=== PATIENT | male | born 1965 | race Caucasian/White ===

== ENCOUNTER 2020-07-16 16:18 | Emergency (ER) | payer OTHER, SELFPAY ==
--- NOTE | ~2020-07-16 | XR_ITS ---
EXAMINATION: XR hip RT min 2V DATE: 07/16/2020 17:08 INDICATION: Right hip pain. Injury. TECHNIQUE: 3 views of right hip were obtained. COMPARISON: None. FINDINGS: Right hip bone alignment is normal. No fracture. There is mild right hip osteoarthritis. Th ere is moderate lumbar spondylosis. There is heterotopic ossification near right ischial tuberosity. IMPRESSION: 1. Mild right hip osteoarthritis. Reviewed, dictated and finalized at location A. [employer]
[2020-07-16 16:31] VITALS: BP 165/79; PULSE 93; RESP 12; TEMP 37.6; O2SAT 100
--- NOTE | 2020-07-16 16:37 | ED.WOUNDLAC ---
HPI - Wound/Laceration General Chief Complaint: Wound/Laceration Stated Complaint: puncture wound Time Seen by Provider: 07/16/20 16:42 Source: patient and RN notes reviewed Mode of arrival: ambulatory Limitations: no limitations History of Present Illness HPI narrative: Patient presents today complaining of an injury to his right low back/buttock. He tripped and fell at work 4 days ago while putting a chair on a chair rack. Patient works for the [employer]. He has not been able to work since then and was told to come in for evaluation. Denies radiation of the pain. Denies numbness or tingling in the extremities or genitalia. Denies any loss of bowel or bladder control. Pain increases with bending at the waist or movement of the right hip. Currently rates his pain 3/10 and has been taking aspirin with relief. Patient drinks 10 alcoholic beverages per night after work. Up-to-date on tetanus vaccine. Related Data Home Medications Medication Instructions Recorded Confirmed No Home Medications 07/16/20 07/16/20 Allergies Allergy/AdvReac Type Severity Reaction Status Date / Time No Known Allergies Allergy Unverified 10/30/16 18:16 Review of Systems Review of Systems: Narrative: CONSTITUTIONAL: Denies body aches, fever, chills, or sweats. EYES: Denies visual changes, redness, or discharge. ENT: Denies rhinorrhea, congestion, sore throat, or otalgia. CARDIOVASCULAR: Denies chest pain, palpitations, or edema. RESPIRATORY: Denies cough or dyspnea. GASTROINTESTINAL: Denies abdominal pain, nausea, vomiting, or diarrhea. GENITOURINARY: Denies dysuria or hematuria. SKIN: Denies rash, itching, or wounds. MUSCULOSKELETAL: Right low back and hip pain and bruising NEUROLOGIC: Denies headache, numbness, tingling, or weakness. PSYCH: Denies depression or anxiety. [facility] Past Medical History Medical History (Updated 07/16/20 @ 17:17 by Noemi Payton, [employer], ) Anxiety Chronic maxillary sinusitis Congenital deformity of knee Essential hypertension History of alcohol abuse History of carpal tunnel syndrome Major depressive disorder Malignant neoplasm of eyelid Family History Family History (Updated 12/21/15 @ 23:19 by DOCTOR UNKNOWN) Mother Family history of diabetes mellitus in first degree relative Family history of coronary artery disease Sibling Family history of diabetes mellitus in first degree relative Social History Social History (Updated 07/16/20 @ 16:55 by Noemi Payton, [facility], ) Smoking status: Never smoker Alcohol intake: current Drinks per week: 70 Comments At time of signature, I have reviewed and agree with nursing past medical, surgical, social and family history unless otherwise noted. Please see nursing chart for further information. There is no relevant family history pertinent to the presenting complaint Exam Narrative: Exam Narrative: GENERAL: Well-appearing, well-nourished, and in no acute distress. HEAD: Normocephalic, atraumatic. EYES: EOMI. No redness or drainage. Conjunctivae normal. ENT: Mucous membranes pink and moist. NECK: Normal AROM. CHEST: No respiratory distress. Clear to auscultation. HEART: Regular rate and rhythm. No murmur appreciated. Normal peripheral pulses. ABDOMEN: Soft, nontender, nondistended, normal active bowel sounds. MUSCULOSKELETAL: No bony tenderness of the thoracic or lumbar spine. Patient has an area of ecchymosis measuring 24 x 10 cm in total that extends from the right lower lateral lumbar paraspinal muscles to the posterior right hip and buttocks. There are 3 small abrasions to this area as well. All abrasions seem to be healing well without signs of infection. Full AROM of the hip with increased pain in the back with flexion of the hip against resistance. Sensation intact. Capillary refill normal. EXTREMITIES: Normal range of motion. No edema. SKIN: Warm, dry, no rash. Capillary refill normal. Normal skin turgor. NEURO: No f
[2020-07-16 16:38] VITALS: BP 165/79; PULSE 93; RESP 12; TEMP 37.6; O2SAT 100
== END 2020-07-16 17:26 | disposition home or self-care (01) ==
PROVIDERS: Emergency Provider Nurse Practitioner
DX: S70.01XA Contusion of right hip, initial encounter (principal); S30.1XXA Contusion of abdominal wall, initial encounter; W01.0XXA Fall on same level from slipping, tripping and stumbling without subsequent striking against object, initial encounter; S30.810A Abrasion of lower back and pelvis, initial encounter; I10 Essential (primary) hypertension; Z85.828 Personal history of other malignant neoplasm of skin; Q68.2 Congenital deformity of knee
CPT/HCPCS: 73502; 99203; G0463

== ENCOUNTER 2021-01-14 16:53 | Emergency (ER) | payer OTHER, SELFPAY ==
[2021-01-14 17:00] VITALS: BP 154/96; PULSE 78; TEMP 36.8; O2SAT 99
--- NOTE | 2021-01-14 17:41 | ED.GENADULT ---
HPI - General Adult General Chief complaint: Extremity Injury, Lower Stated complaint: rt thigh pain Source: patient Mode of arrival: ambulatory Limitations: no limitations History of Present Illness HPI narrative: Patient is a 56-year-old male presents the [facility] via POV for evaluation of right hip pain that began 3 months ago. Patient reports that hip pain radiates to right upper back. He reports his pain is intermittent and achy in nature. Current pain is 7 out of 10 on a pain scale. Tylenol provides minimal pain relief. Prolonged activity worsens pain. 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 Of note, patient reports a right hip injury in June 2020 and was diagnosed with arthritis at that time. Patient does not have a PCP therefore has not seen a provider for this problem. He denies hx of renal insufficiency. Related Data Allergies Allergy/AdvReac Type Severity Reaction Status Date / Time No Known Allergies Allergy Unverified 01/14/21 17:10 Review of Systems Review of Systems: Denies injury, fever, chills, sweats, change in appetite, poor p.o. intake, malaise, calf tenderness, skin color changes, rash, warmth, swelling, numbness, tingling, loss of sensation, deformity, decreased range of motion, weakness, difficulty with ambulation/coordination, nausea, vomiting, lymphadenopathy, shortness of breath, chest pain, heart palpitations, and heart murmur. PENDING SALE TO [facility] Past Medical History Medical History Anxiety Chronic maxillary sinusitis Congenital deformity of knee Essential hypertension History of alcohol abuse History of carpal tunnel syndrome Major depressive disorder Malignant neoplasm of eyelid Family History Family History Mother Family history of diabetes mellitus in first degree relative Family history of coronary artery disease Sibling Family history of diabetes mellitus in first degree relative Social History Social History Smoking status: Never smoker Alcohol intake: current Drinks per week: 70 Comments I have reviewed and agree with the patient's past medical, surgical, social, and family hx as documented by the RN. There is no relevant family history pertinent to the presenting complaint. Exam Narrative: GENERAL: Well-appearing, well-nourished, and in no acute distress. HEAD: Normocephalic, atraumatic. NECK: Supple. No Lymphadenopathy or nuchal rigidity appreciated. CHEST: Bilateral lung qureshi are clear to auscultation. No respiratory distress. No evidence of cough or pleuritic cp upon examination. HEART: Regular rate and rhythm. No murmur, gallop, or rub heard. EXTREMITIES: Moderate pain elicited to right hip and right back with all active/passive ROM. no evidence of injury, decreased ROM, swelling, cyanosis, hematoma, laceration, abrasion, deformity, rash, or puncture. No evidence of dislocation, ligament laxity, effusion, or pain at rest. Pulses palpable at 2+, strength 5/5, and cap refill < 3 seconds in affected extremity. DTRs normal. Gait normal. SKIN: Warm, dry, no rash. NEURO: No focal deficits. Alert and oriented x3. SPECIAL OBSERVATIONS: Smiling. Course Vital Signs Vital signs: Vital Signs Temperature 98.2 F 01/14/21 17:00 Pulse Rate 78 01/14/21 17:00 Blood Pressure 154/96 H 01/14/21 17:00 Pulse Oximetry 99 01/14/21 17:00 Temperature 98.2 F 01/14/21 17:00 Pulse Rate 78 01/14/21 17:00 Blood Pressure 154/96 H 01/14/21 17:00 Pulse Oximetry 99 01/14/21 17:00 Due to an elevated blood pressure, I had a detailed discussion with the patient and/or guardian regarding the need for follow-up with their primary care provider within the next 3-4 days. Patient verbalized understanding and agreed. Martha Gaines
== END 2021-01-14 17:36 | disposition home or self-care (01) ==
PROVIDERS: Emergency Provider Nurse Practitioner Family
DX: G89.29 Other chronic pain (principal); M25.551 Pain in right hip; I10 Essential (primary) hypertension; M21.969 Unspecified acquired deformity of unspecified lower leg; Z85.828 Personal history of other malignant neoplasm of skin
CPT/HCPCS: 99213; G0463

== ENCOUNTER 2022-03-03 16:57 | Emergency (ER) | payer OTHER, SELFPAY ==
--- NOTE | 2022-03-03 17:35 | PC.NURSE ---
pt misunderstood and actually needed blood work done by the outpatient lab. pt denies any symptoms and is not wanting to be seen in the ER.
== END 2022-03-03 17:35 | disposition left against medical advice (07) ==
LOC: ANHED 17:51
PROVIDERS: PCP Emergency Medicine
DX: Z53.21 Procedure and treatment not carried out due to patient leaving prior to being seen by health care provider (principal)
CPT/HCPCS: 99199

== ENCOUNTER 2022-03-04 16:16 | Outpatient (CLI) | payer OTHER, SELFPAY ==
[2022-03-04 16:41] LABS: Hemoglobin A1C 5.2 % (<5.7)
[2022-03-04 16:45] LABS: Alanine Aminotransferase 27 U/L (6-50); Albumin Level 4.8 g/dL (3.5-5.1); Alkaline Phosphatase 66 U/L (38-126); Anion Gap 10 mmol/L (8-16); Aspartate Amino Transferase 40 U/L (17-59); Bilirubin,Total 0.6 mg/dL (0.2-1.3); Blood Urea Nitrogen 5 mg/dL (9-20); Calcium 9.2 mg/dL (8.4-10.2); Carbon Dioxide 26 mmol/L (22-30); Chloride 96 mmol/L (98-107); Cholesterol 234 mg/dL (0-200); Estimated Glomerular Filt Rate > 60; Glucose 100 mg/dL (65-110); HDL Direct 74 mg/dL; Potassium 4.1 mmol/L (3.4-5.0); Sodium 132 mmol/L (137-145); Triglycerides 105 mg/dL (<150)
[2022-03-04 16:57] LABS: LDL Cholesterol Direct 127 mg/dL
[2022-03-04 17:50] LABS: Folic Acid 9.5 ng/mL (2.76->20)
== END 2022-03-04 16:17 | disposition home or self-care (01) ==
LOC: ANHLAB 16:19
PROVIDERS: PCP Emergency Medicine; Visit Provider Emergency Medicine
DX: G45.9 Transient cerebral ischemic attack, unspecified (principal); R25.9 Unspecified abnormal involuntary movements
CPT/HCPCS: 36415; 80053; 80061; 82607; 82746; 83036; 84443

== ENCOUNTER 2022-03-19 10:19 | Outpatient (CLI) | payer OTHER, SELFPAY ==
--- NOTE | ~2022-03-19 | US_ITS ---
EXAMINATION: US carotid duplex BI DATE: 03/19/2022 11:39 INDICATION: Cerebral ischemic attack TECHNIQUE: Grayscale, color Doppler, and pulsed Doppler images of the cervical carotid arteries were obtained. The degree of vessel stenosis is placed in one of the following categories: normal, <50%, 5 0-69%, >=70% but less than near-occlusion, near-occlusion, or total occlusion. Note that percent sten osis relative to normal distal artery lumen diameter is indirectly measured from velocity measurement s as described by Christo, et al. Radiology 2003; 229:340-346. Notes: Normal: Peak systolic velocity <125 centimeters/sec and no plaque <50%. Peak systolic velocity <125 ( EDV <40; ICA/CCA PSV ratio <2.0; used these factors only a tandem lesions or low cardiac output or co ntralateral disease) 50-69 %: PSV 125-230 (EDV 40-100; ratio 2-4) >= 70% but less than near occlusion: PSV greater than 230 (EDV > 100; ratio> 4.0) Near Occlusion: PSV that is variable; markedly narrowed lumen Occlusion: Absent flow on color/spectral Doppler and no lumen on beth scale. COMPARISON: None. FINDINGS: RIGHT: The right common carotid artery (CCA) peak systolic velocity (PSV) is 155 cm/s. The right internal ca rotid artery (ICA) PSV is 122 cm/s. The right ICA end-diastolic velocity (EDV) is 15 cm/s. The right ICA/CCA PSV ratio is 0.8. The external carotid artery (ECA) PSV is 140 cm/s. There is antegrade flow in the right vertebral artery. LEFT: The left CCA PSV is 123 cm/s. The left ICA PSV is 105 cm/s. The left ICA EDV is 17 cm/s. The left ICA /CCA PSV ratio is 0.9. The ECA PSV is 129 cm/s. There is antegrade flow in the left vertebral artery . IMPRESSION: 1. Less than 50% stenosis in the right internal carotid artery by sonographic criteria. 2. Less than 50% stenosis in the left internal carotid artery by sonographic criteria. Reviewed, dictated and finalized at location B. IMPRESSION: 1. Less than 50% stenosis in the right internal carotid artery by sonographic wiliam rizvi. 2. Less than 50% stenosis in the left internal carotid artery by sonographic yomi lin.
--- NOTE | 2022-03-19 10:30 | ECHO_ITS ---
Patient Info Name: Roni Del Valle Age: 57 years : 1965 Gender: Male Ht: 70 in Wt: 240 lbs BSA: 2.36 m2 HR: 85 bpm BP: 183 / 102 mmHg Technical Quality: Poor Exam Date: 03/19/2022 10:56 AM Exam Location: [facility] Patient Status: Outpatient Admit Date: 03/19/2022 Staff Ordering Physician: Glenn Roland MD Bucket Chucker: Elizabeth Ivey RDCS Attending Provider: Glenn Roland MD Referring Physician: Asuncion BURRIS; Exam Type: CA echo doppler color flow Study Info Indications G45.9 - Transient cerebral ischemic attack, unspecified Complete two-dimensional, color flow and Doppler transthoracic echocardiogram is performed. Summary 1. Complete two-dimensional, color flow and Doppler transthoracic echocardiogram is performed. 2. Technically suboptimal study due to poor sonographic images. 3. Left ventricular chamber dimension is normal. 4. Left ventricular systolic function is normal, estimated at 55-60%. 5. There is mildly increased left ventricular wall thickness. 6. The left ventricular diastolic function is normal. 7. E/e' 7 is not elevated. Left Ventricle Technically suboptimal study due to poor sonographic images. E/e' 7 is not elevated. Left ventricular chamber dimension is normal. Left ventricular systolic function is normal, estimated at 55-60%. There is mildly increased left ventricular wall thickness. The left ventricular diastolic function is normal. Right Ventricle Right ventricular systolic function is normal and with normal TAPSE 1.7 cm. Right ventricular chamber dimension is normal. Left Atria Left atrial chamber dimension is normal. Right Atria Right atrial chamber dimension is normal. Aortic Valve The aortic valve is not well visualized. There is no aortic valve stenosis. There is no aortic valve regurgitation. Pulmonic Valve The pulmonic valve is not well visualized. There is no pulmonic regurgitation. Mitral Valve There is no mitral valve stenosis. There is no mitral valve regurgitation. Tricuspid Valve The tricuspid valve leaflets are not well visualized. There is no tricuspid valve regurgitation. Pericardium/Pleural There is no pericardial effusion. Inferior Vena Cava Inferior vena cava is not well visualized. Aorta The aortic root size at the sinus of Valsalva is not well visualized. Mitral Valve Name Value Normal MV Doppler MV Peak Gradient 3 mmHg MV Mean Gradient 2 mmHg MV Decel [place] 567 cm/s2 MV PHT 42 ms MV Area (PHT) 5.2 cm2 4.0-5.0 MV Diastolic Function MV E Peak Velocity 83 cm/s MV A Peak Velocity 68 cm/s MV E/A 1.2 MV Decel Time 146 ms MV Annular TDI MV E/e' (Septal) 8.8 <=8.0 MV E/e' (Lateral) 6.7 <=8.0 MV E/e' ([place]
== END 2022-03-19 10:20 | disposition home or self-care (01) ==
PROVIDERS: PCP Emergency Medicine; Visit Provider Emergency Medicine
DX: I65.23 Occlusion and stenosis of bilateral carotid arteries (principal)
CPT/HCPCS: 93306; 93880

== ENCOUNTER 2022-03-24 12:35 | Outpatient (CLI) | payer OTHER, SELFPAY ==
--- NOTE | ~2022-03-24 | MR_ITS ---
EXAMINATION: MR brain/brain stem wo/w con DATE: 03/24/2022 13:50 INDICATION: Right arm and leg weakness and numbness. Cerebrovascular accident. TECHNIQUE: Magnetic resonance imaging (MRI) of the brain and brainstem was performed without and with 20 mL MultiHance intravenous contrast. COMPARISON: None. FINDINGS: There is chronic encephalomalacia in the left basal ganglia, left internal capsule, and lef t frontal lobe deep white matter with old blood products. There are scattered areas of nonspecific in creased T2-weighted signal intensity in the cerebral white matter. There is old lacunar infarct in le ft thalamus. There is no acute ischemic infarct or abnormal mass lesion. There is ex vacuo dilatation of body of left lateral ventricle. There is mild mucosal thickening in the paranasal sinuses. The or bits are normal. There is a trace left mastoid effusion. IMPRESSION: 1. Chronic encephalomalacia in the left basal ganglia, left internal capsule, and left frontal lobe d eep white matter with old blood products. 2. Old lacunar infarct in left thalamus. 3. Moderate nonspecific cerebral white matter disease, which likely represents chronic small vessel i schemic disease. Reviewed, dictated and finalized at location A. IMPRESSION: 1. Chronic encephalomalacia in the left basal ganglia, left internal capsule, a nd left frontal lobe deep white matter with old blood products. 2. Old lacunar infarct in left thalamus. 3. Moderate nonspecific cerebral white matter disease, which likely represents chronic small vessel ischemic disease.
== END 2022-03-24 12:36 | disposition home or self-care (01) ==
PROVIDERS: PCP Emergency Medicine; Visit Provider Emergency Medicine
DX: G45.9 Transient cerebral ischemic attack, unspecified (principal); R93.0 Abnormal findings on diagnostic imaging of skull and head, not elsewhere classified
CPT/HCPCS: 70553; A9577